=== PATIENT | male | born 1975 | race Caucasian/White ===

== ENCOUNTER 2016-10-16 12:55 | Inpatient (IN) | payer OTHER ==
[2016-10-16 15:12] VITALS: BMI 25.7
--- NOTE | 2016-10-16 16:56 | HP ---
CIWA Score - CIWA Score Nausea/Vomitin-No Nausea/No Vomiting Muscle Tremors: 4-Moderate,w/Arms Extend Anxiety: 5 Agitation: 4-Moderately Restless Paroxysmal Sweats: 1-Minimal Palms Moist Orientation: 0-Oriented Tacttile Disturbances: 3-Moderate Itch/Numb/Burn Auditory Disturbances: 0-None Visual Disturbances: 0-None Headache: 0-None Present CIWA-Ar Total Score: 17 Admission ROS BHS - HPI Chief Complaint: DETOX [place] FOR ALCOHOL DEPENDENCE Allergies/Adverse Reactions: Allergies Allergy/AdvReac Type Severity Reaction Status Date / Time No Known Allergies Allergy Unverified 10/16/16 15:54 History of Present Illness: 40 Y/O MALE WITH A HX OF ALCOHOL DEPENDENCE SEEKING DETOX [place] Exam Limitations: No Limitations, Intoxication - Ebola screening Have you traveled outside of the country in the last 21 days: No Have you had contact with anyone from an Ebola affected area: No Have you been sick,other than usual withdrawal symptoms: No Do you have a fever: No - Review of Systems Constitutional: Chills, Loss of Appetite, Night Sweats, Changes in sleep EENT: reports: Nose Congestion, Dental Problems (IN POOR REPAIR-MISSING TEETH) Respiratory: reports: No Symptoms reported Cardiac: reports: No Symptoms Reported GI: reports: Diarrhea, Nausea, Poor Appetite, Vomiting, Other (HX HIATAL HERNIA) : reports: No Symptoms Reported Musculoskeletal: reports: Back Pain, Joint Pain, Muscle Pain Integumentary: reports: No Symptoms Reported Neuro: reports: Unsteady Gait Endocrine: reports: No Symptoms Reported Hematology: reports: No Symptoms Reported Psychiatric: reports: Orientated x3, Anxious, Depressed Other Systems: Reviewed and Negative Patient History - Patient Medical History Hx Anemia: No Hx Asthma: No Hx Chronic Obstructive Pulmonary Disease (COPD): No Hx Cancer: No Hx Cardiac Disorders: No Hx Congestive Heart Failure: No Hx Hypertension: No Hx Hypercholesterolemia: No Hx Pacemaker: No HX Cerebrovascular Accident: No Hx Seizures: No Hx Dementia: No Hx Diabetes: No Hx Gastrointestinal Disorders: Yes (GERD;HIATAL HERNIA HX) Hx Liver Disease: No Hx Genitourinary Disorders: No Hx Sexually Transmitted Disorders: No Hx Renal Disease (ESRD): No Hx Thyroid Disease: No Hx Human Immunodeficiency Virus (HIV): No (NEGATIVE HX) Hx Hepatitis C: No Hx Depression: Yes (ON MED) Hx Suicide Attempt: No (DENIES) Hx Bipolar Disorder: Yes Hx Schizophrenia: No - Patient Surgical History Past Surgical History: Yes Hx Neurologic Surgery: No Hx Cataract Extraction: No Hx Cardiac Surgery: No Hx Lung Surgery: No Hx Breast Surgery: No Hx Breast Biopsy: No Hx Abdominal Surgery: No Hx Appendectomy: No Hx Cholecystectomy: No Hx Genitourinary Surgery: No Hx Orthopedic Surgery: Yes (L ACL repair in 2010) Other Surgical History: 1993 LEFT PINKY FX WITH REPAIR Anesthesia Reaction: No - PPD History Previous Implant?: Yes Documented Results: Negative w/proof Implanted On Prior [facility] Admission?: Yes Date: 07/19/16 Results: 0 mm PPD to be Administered?: No - Reproductive History Patient is a Female of Child Bearing Age (11 -55 yrs old): No (MALE) - Smoking Cessation Smoking history: Current every day smoker Aproximately how many cigarettes per day: 40 Cigars Per Day: 0 Hx Chewing Tobacco Use: No Initiated information on smoking cessation: Yes 'Breaking Loose' booklet given: 10/16/16 - Substance & Tx. History Hx Alcohol Use: Yes (BEER) Hx Substance Use: Yes (DENIES CURRENT USE; COCAINE IN REMISSION) Substance Use Type: Alcohol, Cocaine (IN REMISSION X 2 YRS) Hx Substance Use Treatment: Yes ([facility]) - Substances Abused Alcohol Route: Oral Frequency: Daily Amount used: 6 25 oz beers Age of first use: 13 Date of Last Use: 10/16/16 Family Disease History - Family Disease History Family Disease History: CA: Mother (brain ) Admission Physical Exam S - Vital Signs Vital Signs: Vital Signs - 24 hr 10/16/16 15:09 Temperature 97.6 F Pulse Rate 90 Respiratory 18 Rate Blood Pressure 130/82 - Physical General Appearance: Yes: Moderate Distress, Alcohol on Breath, Intoxicated, Irritable, Anxious HEENTM: Yes: EOMI, Normocephalic, ALVARO, Pharynx Normal Respiratory: Yes: Chest Non-Tender, Lungs Clear, Normal Breath Sounds, No Respiratory Distress Neck: Yes: Supple, Trachea in good position Breast: Yes: Breast Exam Deferred Cardiology: Yes: Regular Rhythm, Regular Rate, S1, S2 Abdominal: Yes: Normal Bowel Sounds, Non Tender, Soft Genitourinary: Yes: Other (N/C) Musculoskeletal: Yes: full range of Motion, Gait Steady Extremities: Yes: Normal Range of Motion, Non-Tender Neurological: Yes: differential specialist II-XII NML intact, Fully Oriented, Alert, Motor Strength 5/5 Integumentary: Yes: Dry, Warm Lymphatic: Yes: Within Normal Limits - Diagnostic (1) Alcohol dependence with uncomplicated withdrawal Status: Chronic (2) Nicotine dependence Status: Chronic Qualifiers: Nicotine product type: cigarettes Substance use status: uncomplicated Qualified Code(s): F17.210 - Nicotine dependence, cigarettes, uncomplicated (3) GERD (gastroesophageal reflux disease) Status: Chronic Qualifiers: Esophagitis presence: without esophagitis Qualified Code(s): K21.9 - Gastro-esophageal reflux disease without esophagitis (4) History of hiatal hernia Status: Resolved Comment: PER PT HISTORY. Cleared for Admission [facility] - Detox or Rehab [facility] Level of Care: Medically Managed Detox Regimen/Protocol: Librium [facility] Breath Alcohol Content Breath Alcohol Content: 0.146 Urine Drug Screen - Results Drug Screen Negative: Yes
[2016-10-16] MEDS ORDERED: MAGNESIUM CITRATE 300 ML BOTTLE PO PRN (17:04)
[2016-10-16] MEDS ORDERED: IBUPROFEN 400 MG TABLET (FP) PO PRN (17:04)
[2016-10-16] MEDS ORDERED: hydrOXYzine PAMOATE 25 MG CAPSULE (FP) PO PRN (17:04)
[2016-10-16] MEDS ORDERED: diphenhydrAMINE HCL 50 MG CAPSULE PO PRN (17:04)
[2016-10-16] MEDS ORDERED: MAGNESIUM HYDROX 2400MG/30ML ORAL SUSPENSION 30 ML CUP PO PRN (17:04)
[2016-10-16] MEDS ORDERED: chlordiazePOXIDE HCL 25 MG CAPSULE PO PRN (17:04)
[2016-10-16] MEDS ORDERED: MENTHOL/PHENOL 1 EACH UD MM PRN (17:04)
[2016-10-16] MEDS ORDERED: NICOTINE POLACRILEX 4 MG GUM BC PRN (17:04)
[2016-10-16] MEDS ORDERED: ACETAMINOPHEN 325 MG TABLET (FP) PO PRN (17:04)
[2016-10-16] MEDS ORDERED: LOPERAMIDE HCL 2 MG CAPSULE PO PRN (17:04)
[2016-10-16] MEDS ORDERED: guaiFENesin/D-METHORPHAN HB 10 ML UNIT-DOSE CUPS PO PRN (17:04)
[2016-10-16] MEDS ORDERED: P-EPHED 60MG/TRIPROLIDI 2.5MG TABLET PO PRN (17:04)
[2016-10-16] MEDS ORDERED: MAG HYDROX/AL HYDROX/SIMETH 30 ML UNIT-DOSE CUP PO PRN (17:04)
[2016-10-16] MEDS ORDERED: chlordiazePOXIDE HCL 25 MG CAPSULE PO ONE (18:00)
[2016-10-16] MEDS: PANTOPRAZOLE 40 MG TABLET (FP) PO SCH (19:09)
[2016-10-16] MEDS: NICOTINE 21 MG/24 HOURS TOPICAL PATCH TD SCH (19:11)
[2016-10-16] MEDS: chlordiazePOXIDE HCL 25 MG CAPSULE PO SCH (22:29)
[2016-10-16] MEDS: THIAMINE HCL 100 MG TABLET (FP) PO SCH (22:29)
[2016-10-16 23:25] LABS: URINE APPEARANCE CLEAR; URINE BILIRUBIN NEGATIVE (NEGATIVE); URINE BLOOD NEGATIVE (NEGATIVE); URINE COLOR COLORLESS; URINE GLUCOSE (UA) NEGATIVE (NEGATIVE); URINE KETONE NEGATIVE (NEGATIVE); URINE LEUK ESTERASE NEGATIVE (NEGATIVE); URINE NITRITE NEGATIVE (NEGATIVE); URINE PROTEIN NEGATIVE (NEGATIVE); URINE UROBILINOGEN NEGATIVE E.U./dl (0.2-1.0)
[2016-10-17] MEDS: chlordiazePOXIDE HCL 25 MG CAPSULE PO SCH ×4 (05:38→22:18)
[2016-10-17 10:01] LABS: MCHC 34.1 g/dl (32.0-35.9); MEAN CELL VOLUME 93.8 fl (80-96); MEAN PLT VOLUME 9.3 fl (7.5-11.1); PLATELET COUNT 284 K/MM3 (134-434); RDW 13.2 % (11.9-15.9); WHITE BLOOD COUNT 9.9 K/mm3 (4.0-10.0)
[2016-10-17] MEDS: PRENATAL VITAMINS W/ FOLIC ACID TABLET (FP) PO SCH (10:34)
[2016-10-17] MEDS: PANTOPRAZOLE 40 MG TABLET (FP) PO SCH (10:34)
[2016-10-17] MEDS: NICOTINE 21 MG/24 HOURS TOPICAL PATCH TD SCH (10:36)
[2016-10-17] MEDS: NAPROXEN 500 MG TABLET (FP) PO PRN (10:38)
[2016-10-17 10:53] LABS: BILIRUBIN,TOTAL 0.6 mg/dL (0.2-1.0); CALCIUM 9.5 mg/dL (8.5-10.1); CREATININE 1.4 mg/dL (0.7-1.3); TOT PROT 8.1 g/dl (6.4-8.2)
--- NOTE | 2016-10-17 11:00 | PN ---
S CIWA - CIWA Score Nausea/Vomitin-No Nausea/No Vomiting Muscle Tremors: 4-Moderate,w/Arms Extend Anxiety: 3 Agitation: 4-Moderately Restless Paroxysmal Sweats: 3 Orientation: 0-Oriented Tacttile Disturbances: 0-None Auditory Disturbances: 0-None Visual Disturbances: 0-None Headache: 0-None Present CIWA-Ar Total Score: 14 BHS Progress Note (SOAP) Subjective: shakes sweats agitation anxiety interrupted sleep Objective: 10/17/16 10:59 Vital Signs Temperature 96.8 F L 10/17/16 09:55 Pulse Rate 95 H 10/17/16 09:55 Respiratory Rate 18 10/17/16 09:55 Blood Pressure 145/72 10/17/16 09:55 O2 Sat by Pulse Oximetry (%) Laboratory Tests 10/16/16 10/17/16 10/17/16 22:00 06:00 06:00 WBC 9.9 D RBC 5.09 Hgb 16.3 Hct 47.7 MCV 93.8 MCHC 34.1 RDW 13.2 Plt Count 284 D MPV 9.3 Sodium 140 Potassium 3.5 Chloride 108 H Carbon Dioxide 25 Anion Gap 7 L BUN 28 H D Creatinine 1.4 H D Creat Clearance w eGFR 55.58 Random Glucose 86 Calcium 9.5 Total Bilirubin 0.6 AST 25 ALT 37 D Alkaline Phosphatase 120 H D Total Protein 8.1 D Albumin 4.0 Urine Color Colorless Urine Appearance Clear Urine pH 6.0 Ur Specific [place] 1.002 Urine Protein Negative Urine Glucose (UA) Negative Urine Ketones Negative Urine Blood Negative Urine Nitrite Negative Urine Bilirubin Negative Urine Urobilinogen Negative Ur Leukocyte Esterase Negative awake/alert ambulating no acute distress Assessment: 10/17/16 10:59 withdrawal sx Plan: continue detox increase fluids labs pending
--- NOTE | 2016-10-17 16:55 | EKG ---
Test Reason : Blood Pressure : / mmHG Vent. Rate : 078 BPM Atrial Rate : 078 BPM P-R Int : 166 ms QRS Dur : 090 ms QT Int : 396 ms P-R-T Axes : 066 058 080 degrees QTc Int : 451 ms NORMAL SINUS RHYTHM MINIMAL VOLTAGE CRITERIA FOR LVH, MAY BE NORMAL VARIANT BORDERLINE ECG NO PREVIOUS ECGS AVAILABLE Confirmed by GEOVANNY YANG MD ([id number]) on 10/17/2016 4:55:06 PM Referred By: Confirmed By:GEOVANNY YANG MD
--- NOTE | 2016-10-17 17:16 | CONSULT ---
[facility] Psychiatric Consult - Data Date of interview: 10/17/16 Admission source: [facility] Identifying data: Readmission to [facility] for this 40 y/o male seeking detox treatment on for alcohol dependence.Patient is single,a father of one,currently homeless and employed by the [employer]. Substance Abuse History: - Smoking Cessation. Smoking history: Current every day smoker. Aproximately how many cigarettes per day: 40. Cigars Per Day: 0. Hx Chewing Tobacco Use: No. Initiated information on smoking cessation: Yes. ' Breaking Loose' booklet given: 10/16/16. - Substance & Tx. History. Hx Alcohol Use: Yes (BEER). Hx Substance Use: Yes (DENIES CURRENT USE; COCAINE IN REMISSION). Substance Use Type: Alcohol, Cocaine (IN REMISSION X 2 YRS). Hx Substance Use Treatment: Yes ([facility] [place]). - Substances Abused. Alcohol. Route: Oral. Frequency: Daily. Amount used: 6 25 oz beers. Age of first use: 13. Date of Last Use: 10/16/16. Confirmed by the patient. Medical History: Gerd and a history of hiatal hernia. Psychiatric History: History of multiple psychiatric hospitalizations (onset of illness in 1993).Diagnosed with Bipolar Disorder.Known to various institutions, including [facility] and [facility] in [facility].Discharged from the [facility] in [facility].Medications (self-report) remain the same :lithium carbonate 300 mg po am/ 600 mg po hs + seroquel 300 mg po hs/100 mg po am + buspar 15 mg po qid.Currently Mr Tavarez is seeing Dr Rivera,a private psychiatrist in the [place], for medication management.No reported history of suicide attempts. Physical/Sexual Abuse/Trauma History: Patient denies. Mental Status Exam - Mental Status Exam Alert and Oriented to: Time, Place, Person Cognitive Function: Good Patient Appearance: Unkempt, Disheveled (malodorous) Mood: Nervous, Withdrawn, Anxious Affect: Blunted Patient Behavior: Fatigued, Cooperative Speech Pattern: Clear Voice Loudness: Normal Thought Process: Goal Oriented Thought Disorder: Not Present Hallucinations: Denies Suicidal Ideation: Denies Homicidal Ideation: Denies Insight/Judgement: Poor Sleep: Poorly, Difficulty falling asleep Appetite: Good Muscle strength/Tone: Normal Gait/Station: Normal Psychiatric Findings - Problem List ([place] 1, 2,3) (1) Alcohol dependence with uncomplicated withdrawal Current Visit: Yes Status: Acute (2) Nicotine dependence Current Visit: Yes Status: Acute Qualifiers: Nicotine product type: cigarettes Substance use status: in withdrawal Qualified Code(s): F17.213 - Nicotine dependence, cigarettes, with withdrawal (3) Bipolar disorder Current Visit: Yes Status: Chronic (4) GERD (gastroesophageal reflux disease) Current Visit: Yes Status: Chronic Qualifiers: Esophagitis presence: without esophagitis Qualified Code(s): K21.9 - Gastro-esophageal reflux disease without esophagitis (5) History of hiatal hernia Current Visit: Yes Status: Chronic Comment: PER PT HISTORY. (6) Weight loss Current Visit: Yes Status: Chronic (7) Insomnia Current Visit: Yes Status: Chronic - Initial Treatment Plan Initial Treatment Plan: Psychoeducation.Detoxification.Medications :seroquel 300 mg po hs + buspar 15 mg po qid.[place] is held until results of basic metabolic panel (repeat).Side effects/benefits discussed with patient.Made aware of risk of renal dysfunction,cardiac issues,thyroid dysfunction (lithium), oversedation/falls,metabolic syndome and abnormal movements (seroquel),sedation (buspar).Patient agrees to resume these medications,pending lithium level.Observation.No scripts needed at discharge (supply still available at home /refills from outpatient psychiatrist).
[2016-10-17] MEDS: QUEtiapine FUMARATE 300 MG TABLET PO SCH (22:18)
[2016-10-17] MEDS: THIAMINE HCL 100 MG TABLET (FP) PO SCH (22:18)
[2016-10-18] MEDS: chlordiazePOXIDE HCL 25 MG CAPSULE PO SCH ×3 (05:49→17:47)
--- NOTE | 2016-10-18 10:11 | PN ---
S CIWA - CIWA Score Nausea/Vomitin Muscle Tremors: 2 Anxiety: 2 Agitation: 2 Paroxysmal Sweats: 3 Orientation: 0-Oriented Tacttile Disturbances: 1-Very Mild Itch/Numbness Auditory Disturbances: 0-None Visual Disturbances: 0-None Headache: 0-None Present CIWA-Ar Total Score: 12 S Progress Note (SOAP) Subjective: sweats, interrupted sleep Objective: 10/18/16 10:08 Vital Signs Temperature 97.5 F L 10/18/16 09:59 Pulse Rate 100 H 10/18/16 09:59 Respiratory Rate 16 10/18/16 09:59 Blood Pressure 141/99 10/18/16 09:59 O2 Sat by Pulse Oximetry (%) Laboratory Tests 10/16/16 10/17/16 10/17/16 22:00 06:00 06:00 WBC 9.9 D RBC 5.09 Hgb 16.3 Hct 47.7 MCV 93.8 MCHC 34.1 RDW 13.2 Plt Count 284 D MPV 9.3 Sodium 140 Potassium 3.5 Chloride 108 H Carbon Dioxide 25 Anion Gap 7 L BUN 28 H D Creatinine 1.4 H D Creat Clearance w eGFR 55.58 Random Glucose 86 Calcium 9.5 Total Bilirubin 0.6 AST 25 ALT 37 D Alkaline Phosphatase 120 H D Total Protein 8.1 D Albumin 4.0 Urine Color Colorless Urine Appearance Clear Urine pH 6.0 Ur Specific [place] 1.002 Urine Protein Negative Urine Glucose (UA) Negative Urine Ketones Negative Urine Blood Negative Urine Nitrite Negative Urine Bilirubin Negative Urine Urobilinogen Negative Ur Leukocyte Esterase Negative RPR Titer 10/17/16 06:00 WBC RBC Hgb Hct MCV MCHC RDW Plt Count MPV Sodium Potassium Chloride Carbon Dioxide Anion Gap BUN Creatinine Creat Clearance w eGFR Random Glucose Calcium Total Bilirubin AST ALT Alkaline Phosphatase Total Protein Albumin Urine Color Urine Appearance Urine pH Ur Specific [place] Urine Protein Urine Glucose (UA) Urine Ketones Urine Blood Urine Nitrite Urine Bilirubin Urine Urobilinogen Ur Leukocyte Esterase RPR Titer Nonreactive pt aox3 in nad ambulating Assessment: 10/18/16 10:09 withdrawal sx;s Plan: cont. detox increase fluids
[2016-10-18] MEDS: PRENATAL VITAMINS W/ FOLIC ACID TABLET (FP) PO SCH (10:26)
[2016-10-18] MEDS: PANTOPRAZOLE 40 MG TABLET (FP) PO SCH (10:26)
[2016-10-18] MEDS: NAPROXEN 500 MG TABLET (FP) PO PRN ×2 (10:26→22:52)
[2016-10-18] MEDS: NICOTINE 21 MG/24 HOURS TOPICAL PATCH TD SCH (10:26)
[2016-10-18 10:53] LABS: CALCIUM 8.6 mg/dL (8.5-10.1); CREATININE 0.6 mg/dL (0.7-1.3)
[2016-10-18] MEDS: QUEtiapine FUMARATE 300 MG TABLET PO SCH (22:52)
[2016-10-18] MEDS: THIAMINE HCL 100 MG TABLET (FP) PO SCH (22:52)
[2016-10-18] MEDS: chlordiazePOXIDE 5 MG CAPSULE PO SCH (22:52)
[2016-10-19] MEDS: chlordiazePOXIDE 5 MG CAPSULE PO SCH (05:59)
--- NOTE | 2016-10-19 09:11 | DS ---
[facility] Detox Discharge Summary Admission Date: 10/16/16 Discharge Date: 10/19/16 - History Present History: Alcohol Dependence - Physical Exam Results Vital Signs: Vital Signs Temperature 98.6 F 10/19/16 07:15 Pulse Rate 84 10/19/16 07:15 Respiratory Rate 18 10/19/16 07:15 Blood Pressure 118/81 10/19/16 07:15 O2 Sat by Pulse Oximetry (%) - Treatment Hospital Course: Detox Protocol Followed, Detoxed Safely, Responded well, Discharged Condition Good, Rehab Referral Accepted - Medication Discharge Medications: Ambulatory Orders Omeprazole [Prilosec (RX)] 20 mg PO DAILY 08/12/12 Buspirone HCl 30 mg PO DAILY 09/20/12 Buspirone HCl [Buspar -] 15 mg PO QID #60 tablet 07/19/16 Joes Carbonate [Eskalith -] 300 mg PO DAILY #14 capsule 07/19/16 Joes Carbonate [Eskalith -] 600 mg PO HS #30 capsule 07/19/16 Quetiapine Fumarate [Seroquel] 300 mg PO HS #30 tablet 07/19/16 Naproxen [Naprosyn -] 500 mg PO BID 10/16/16 Quetiapine Fumarate [Seroquel -] 100 mg PO DAILY 10/16/16 - Diagnosis (1) Alcohol dependence with uncomplicated withdrawal Current Visit: Yes Status: Chronic (2) Nicotine dependence Current Visit: Yes Status: Chronic Qualifiers: Nicotine product type: cigarettes Substance use status: uncomplicated Qualified Code(s): F17.210 - Nicotine dependence, cigarettes, uncomplicated (3) Bipolar disorder Current Visit: Yes Status: Chronic (4) GERD (gastroesophageal reflux disease) Current Visit: Yes Status: Chronic Qualifiers: Esophagitis presence: without esophagitis Qualified Code(s): K21.9 - Gastro-esophageal reflux disease without esophagitis (5) History of hiatal hernia Current Visit: No Status: Resolved (6) Insomnia Current Visit: Yes Status: Chronic (7) Weight loss Current Visit: Yes Status: Chronic (8) Bipolar 1 disorder, mixed Current Visit: No Status: Chronic - AMA Did Patient Leave Against Medical Advice: Yes
[2016-10-19 09:30] VITALS: BP 148/96; PULSE 95; TEMP 97.1
[2016-10-19] MEDS ORDERED: chlordiazePOXIDE HCL 10 MG CAPSULE PO SCH (23:00)
== END 2016-10-19 09:28 | disposition left against medical advice (07) | DRG 749 ==
LOC: YASAS 12:55 → Y6N 17:41
PROVIDERS: ADMIT Internal Medicine Addiction Medicine; ATTEND Internal Medicine Addiction Medicine
PROC: HZ2ZZZZ Detoxification Services for Substance Abuse Treatment (ICD-10-PCS; principal; 2016-10-16)
DX: F10.230 Alcohol dependence with withdrawal, uncomplicated (principal); F17.210 Nicotine dependence, cigarettes, uncomplicated; F31.60 Bipolar disorder, current episode mixed, unspecified; K21.9 Gastro-esophageal reflux disease without esophagitis; G47.00 Insomnia, unspecified; Z87.898 Personal history of other specified conditions
CPT/HCPCS: 36415; 80048; 80053; 80178; 81003; 85027; 86593; 93005; 93010